=== PATIENT | female | born 1975 | race Caucasian/White ===

== ENCOUNTER 2016-02-24 13:42 | Outpatient (CLI) | payer OTHER ==
--- NOTE | 2016-02-24 14:20 | DIAGNOSTIC IMAGING REPORT ---
PROCEDURE: CT HEAD WITHOUT CONTRAST INDICATION: PT FELL HIT HEAD; HEADACHES TECHNIQUE: Axial CT images were acquired through the head. Coronal and sagittal reformations were created. COMPARISON: None. FINDINGS: No intracranial hemorrhage or extraaxial fluid collections. Ventricles are normal in size, shape and position. There is no mass, mass effect or midline shift. The thorpe-white matter differentiation is normal. There is scalp edema. The calvarium is intact. The paranasal sinuses and mastoid air cells are normally aerated. The extracranial soft tissues and orbits are normal. IMPRESSION: 1. No CT evidence of acute intracranial process. Scalp edema 2. Findings discussed with Li Benito at 02:[address] scans at this facility use dose modulation, iterative reconstruction, and/or weight-based dosing when appropriate to reduce radiation dose to as low as reasonably achievable.
[2016-05-21] MEDS ORDERED: ZANTAC 150 MAX150 MG PO (11:19)
[2016-05-21] MEDS ORDERED: METFORMIN HCL1000 M1 PO (11:19)
[2016-05-21] MEDS ORDERED: CLARITIN10 MG PO (11:20)
[2016-07-02] MEDS ORDERED: VITAMIN D-31000 UNIT PO (11:16)
[2016-07-02] MEDS ORDERED: ZITHROMAX250 MG PO (11:17)
[2016-07-05] MEDS ORDERED: DIFLUCAN150 MG PO (12:42)
== END 2016-02-24 23:00 ==
LOC: CT SRH 13:42
DX: R51 Headache (principal); R60.9 Edema, unspecified

== ENCOUNTER 2016-04-19 07:48 | Outpatient (CLI) | payer OTHER ==
--- NOTE | 2016-04-19 10:24 | DIAGNOSTIC IMAGING REPORT ---
PROCEDURE: US ABDOMEN ULTRASOUND-COMPLETE INDICATION: ELEVATED LIVER ENZYMES TECHNIQUE: Hernandez scale and color Doppler sonographic images of the abdomen were obtained without comparison. COMPARISON: None. FINDINGS: The liver is normal in size, contour, and echotexture. No mass or intrahepatic biliary dilatation. The gallbladder is surgically absent. No pericholecystic fluid or Douglas sign. The extrahepatic common duct is normal measuring 3.4 mm The visualized pancreas is normal without ductal dilatation or peripancreatic fluid collection. The abdominal aorta is normal in its course and caliber. The retrohepatic inferior vena cava is patent. There is appropriate hepatopetal flow in the portal vein. The right kidney measures 11.3 in length. The left kidney measures 10.8 in length. Both kidneys demonstrate normal morphology and cortical thickness without hydronephrosis, cyst, solid mass, or shadowing calculus. Color Doppler imaging demonstrates normal blood flow in each kidney. The spleen is normal in size measuring 10.1 centimeters in length. There is no perihepatic or perisplenic ascites. IMPRESSION: 1. Normal abdominal ultrasound.
--- NOTE | 2016-04-19 11:48 | DIAGNOSTIC IMAGING REPORT ---
PROCEDURE: XR BARIUM SWALLOW INDICATION: Epigastric pain. History of hiatal hernia. Type 2 diabetes. Prior cholecystectomy. TECHNIQUE: Double contrast study. Fluoroscopy time, 2.8 minutes; 1562.45 mGy. 38 fluoroscopic images (including cine fluoroscopy of the esophagus). COMPARISON: None. FINDINGS: Small sliding hiatal hernia (minimal). Moderate gastroesophageal reflux. Esophagus is otherwise normal. IMPRESSION: 1. Small sliding hiatal hernia (minimal). 2. Moderate gastroesophageal reflux. 3. Findings discussed with the patient.
[2016-05-21] MEDS ORDERED: METFORMIN HCL1000 M1 PO (11:19)
[2016-05-21] MEDS ORDERED: ZANTAC 150 MAX150 MG PO (11:19)
[2016-05-21] MEDS ORDERED: CLARITIN10 MG PO (11:20)
[2016-07-02] MEDS ORDERED: VITAMIN D-31000 UNIT PO (11:16)
[2016-07-02] MEDS ORDERED: ZITHROMAX250 MG PO (11:17)
[2016-07-05] MEDS ORDERED: DIFLUCAN150 MG PO (12:42)
== END 2016-04-19 23:00 ==
LOC: US SRH 07:48 → XR SRH 10:30 → US SRH 23:00
DX: K44.9 Diaphragmatic hernia without obstruction or gangrene (principal); K21.9 Gastro-esophageal reflux disease without esophagitis